=== PATIENT | male | born 1985 | race Caucasian/White ===

== ENCOUNTER 2018-01-12 18:44 | Emergency (ER) | payer OTHER ==
[2018-01-12] MEDS ORDERED: ALBUTEROL 0.083% (NEB) 2.5 MG/3 ML AMP HHN (19:07)
[2018-01-12] MEDS: LIDOCAINE 1% (MDV) 10 ML INJ INJ (19:16)
[2018-01-12] MEDS: AMOXICILLIN/CLAV 875 MG TAB PO (19:27)
[2018-01-12] MEDS ORDERED: IPRATROPIUM (NEB) 0.5 MG/2.5 ML AMP HHN (19:30)
[2018-01-12] MEDS ORDERED: METHYLPREDNISOLONE 125 MG INJ IV (19:30)
== END 2018-01-12 21:16 | disposition home or self-care (01) ==
LOC: FTE 21:16
DX: S00.511A Abrasion of lip, initial encounter (principal); S00.31XA Abrasion of nose, initial encounter; W54.0XXA Bitten by dog, initial encounter; Y92.9 Unspecified place or not applicable
CPT/HCPCS: 12011; 99284-25